=== PATIENT | male | born 2000 | race Caucasian/White ===

== ENCOUNTER 2019-07-13 15:40 | Observation (INO) | payer BC, SELFPAY ==
--- NOTE | ~2019-07-13 | CT_ITS ---
EXAMINATION: CT abdomen pelvis w con DATE: 07/13/2019 17:21 INDICATION: Abdominal pain TECHNIQUE: Computed tomography (CT) of the abdomen and pelvis was performed with 100 mL Omnipaque-350 intravenous contrast. Automated exposure control and iterative reconstruction technique were employe d. The dose-length product was 408.33 mGy-cm. COMPARISON: None FINDINGS: Lung bases are clear. Heart size is normal. No pericardial or pleural effusion. Liver, gallbladder, s pleen, pancreas, bilateral adrenal glands and kidneys are normal. Appendix is normal. Edematous appea ring wall thickening in the descending and sigmoid colon consistent with colitis. Small bowel is norm al with no obstruction. Small amount of likely reactive free fluid in the pelvis. No abscess or free intraperitoneal gas. Bladder is normal. No pathologically enlarged abdominal or pelvic lymphadenopath y. Bones are unremarkable. IMPRESSION: 1. Wall thickening in the descending and sigmoid colon consistent with colitis which could be infecti ous, inflammatory or less likely ischemic in etiology. Reviewed, dictated and finalized at location [facility] IMPRESSION: 1. Wall thickening in the descending and sigmoid colon consistent with colitis which could be infectious, inflammatory or less likely ischemic in etiology.
[2019-07-13 15:40] VITALS: BP 130/83; PULSE 70; RESP 18; TEMP 36.7; O2SAT 98
[2019-07-13 16:20] LABS: Basophils Absolute Auto 0.1 K/mm3 (0.0-0.1); Basophils Percent Auto 0.6 % (0.2-1.2); Eosinophils Absolute Auto 0.1 K/mm3 (0-0.3); Eosinophils Percent Auto 1.2 % (0-4.4); Hematocrit 49.2 % (42.0-52.0); Immature Granulocyte Absolute 0.03 K/mm3 (0.00-0.031); Immature Granulocyte Percent A 0.3 % (0-0.5); Lymphocytes Absolute Auto 3.24 K/mm3 (0.9-3.2); Lymphocytes Percent Auto 31.7 % (18.3-44.2); Mean Corpuscular HGB Conc 34.6 g/dl (32-36); Mean Corpuscular Hemoglobin 30.2 pg (26-34); Mean Corpuscular Volume 87.5 fl (80-100); Mean Platelet Volume 9.7 fl (7.4-10.4); Monocytes Absolute Auto 0.7 K/mm3 (0.1-0.6); Monocytes Percent Auto 7.2 % (2.6-8.5); Platelet Count Result 329 k/mm3 (150-375); Red Blood Count 5.62 M/mm3 (4.6-6.20); Red Cell Distribution Width 12.2 % (11.5-14.5); White Blood Count 10.2 K/mm3 (4.5-10.0)
--- NOTE | 2019-07-13 16:23 | ED.ABDPAIN ---
HPI - Abdominal Pain General Chief Complaint: Abdominal Pain Stated Complaint: Abdominal pain Time Seen by Provider: 07/13/19 15:45 Source: patient History of Present Illness HPI narrative: Pt is a 19 y/o male who presents to the ED with c/o generalized ABD pain that started last night. He reports associated hematochezia and diarrhea. He had 6 episodes of diarrhea with maroon colored blood and 2 episodes of just rectal bleeding. He has had ABD pain in the past but it always subsided on it's own and he was never worked up for it. Per mother, pt has had a h/o constipation in the past. He reports nausea, but denies vomiting or a fever. Per mother, pt's father has a H/o diverticulitis and IBS. MD elicited complaint: abdominal pain Onset (ago): day(s) (last night) Pain Consistency: constant Location: diffuse Associated symptoms: nausea, diarrhea and hematochezia Related Data Home Medications Medication Instructions Recorded Confirmed No Home Medications 07/13/19 07/13/19 Allergies Allergy/AdvReac Type Severity Reaction Status Date / Time No Known Allergies Allergy Verified 07/13/19 16:42 Review of Systems Review of Systems: All systems reviewed & are unremarkable except as noted in HPI and below Constitutional: Constitutional: Denies fever(s) Gastrointestinal: Gastrointestinal: Reports abdominal pain, Reports hematochezia, Reports diarrhea, Reports nausea and Denies vomiting PMFSH Past Medical History Medical History Dermatitis Tear, knee, medial collateral ligament Surgical History Surgical History History of hand surgery right hand Family History Family History (Updated 07/13/19 @ 11:08 by Debbie Toro [facility]) Other Lymphoma Social History Social History Smoking status: Never smoker Alcohol intake: current Exam Narrative: Exam Narrative: APPEARANCE: No acute distress, nontoxic, resting in bed HEENT: Normocephalic, atraumatic, OMM RESPIRATORY: No respiratory distress, clear to auscultation bilaterally with no rhonchi wheezing or rales CARDIOVASCULAR: RRR s murmur ABDOMINAL: Soft, nondistended, tender palpation right lower quadrant left lower quadrant, no tenderness right upper quadrant left upper quadrant, no rebound or guarding MUSCULOSKELETAl: Moves all extremities. No clubbing, cyanosis or edema. NEURO: Awake and alert. Following commands, speech normal, no focal deficits SKIN:: Warm, dry. Normal Color PSYCHIATRIC: Normal affect/mood Course Course Emergency Course: Discussed with Dr. Patel presentation work-up. At this time recommends patient started on Levaquin and Flagyl and will follow as inpatient Discussed with KEON Hyde presentation work-up. Agrees with admission at this time Discussed with patient and family results of workup and diagnosis. Discussed need for admission. Patient and family understand and agree to current treatment plan Vital Signs Vital signs: Vital Signs Temperature 98.0 F 07/13/19 15:40 Pulse Rate 70 07/13/19 15:40 Respiratory Rate 18 07/13/19 15:40 Blood Pressure 130/83 07/13/19 15:40 Pulse Oximetry 98 07/13/19 15:40 Temperature 98.2 F 07/13/19 16:40 Pulse Rate 74 07/13/19 16:40 Respiratory Rate 16 07/13/19 16:40 Blood Pressure 124/72 07/13/19 16:40 Pulse Oximetry 98 07/13/19 16:40 MDM - Abdominal Pain Lab Data Result diagrams: 07/13/19 16:08 07/13/19 16:08 Labs: Lab Results 07/13/19 07/13/19 07/13/19 Range/Units 16:08 16:08 16:08 WBC 10.2 H (4.5-10.0) K/mm3 RBC 5.62 (4.6-6.20) M/mm3 Hgb 17.0 (14.0-18.0) g/dL Hct 49.2 (42.0-52.0) % MCV 87.5 (80-100) fl MCH 30.2 (26-34) pg MCHC 34.6 (32-36) g/dl RDW 12.2 (11.5-14.5) % Plt Count 329 (150-375) k/mm3 MPV 9.7 (7.4-10.4) fl Immatu
[2019-07-13 16:29] LABS: Prothrombin Time 13.3 Seconds (11.1-14.7)
[2019-07-13 16:30] LABS: Partial Thromboplastin Time 27.6 SECONDS (22.3-36.8)
[2019-07-13 16:32] LABS: Alanine Aminotransferase 47 U/L (4-50); Albumin Level 4.9 g/dL (3.5-5.1); Alkaline Phosphatase 84 U/L (38-126); Aspartate Amino Transferase 29 U/L (17-59); Bilirubin,Total 1.4 mg/dL (0.2-1.3); Blood Urea Nitrogen 11 mg/dL (9-20); Calcium 9.6 mg/dL (8.4-10.2); Carbon Dioxide 28 mmol/L (22-30); Chloride 100 mmol/L (98-107); Estimated Glomerular Filt Rate > 60; Glucose 82 mg/dL (75-110); Potassium 3.6 mmol/L (3.4-5.0); Sodium 139 mmol/L (137-145)
[2019-07-13 16:40] VITALS: BP 124/72; PULSE 74; RESP 16; TEMP 36.8; O2SAT 98
[2019-07-13] MEDS: SODIUM CHLORIDE 0.9% IV 1,000 ML 999 ML IV CONT (16:43)
[2019-07-13 18:52] VITALS: BP 122/72; PULSE 84; RESP 16; O2SAT 98
[2019-07-13] MEDS: metroNIDAZOLE 500 MG/ISO 100ML 500 MG/100 ML BAG 100 MG IVPB (20:28)
--- NOTE | 2019-07-13 20:31 | ADMGEN ---
This patient, Nomi Newell, was admitted to Medical Room 249-. Patient/family oriented to hospital policies and general routines including ID bracelet, bed and alarms, visiting hours, pain management, procedures, bathroom and other care routines, personal items, smoking policy, room service/diet, and visiting hours. Valuables list has been completed. Information on how to activate the Rapid Response Team has been discussed. Patient/Family are encouraged to report perceived risks to care and to ask questions if they do not understand what they are told or what they should do.
[2019-07-13 21:19] VITALS: BP 113/66; PULSE 71; RESP 16; TEMP 37.7; O2SAT 99; BMI 23.6
--- NOTE | 2019-07-13 21:40 | PM.IMHP ---
H&P: HPI History of Present Illness Chief complaint: Abdominal pain, diarrhea, bloody stools. Narrative: Nomi Newell is a pleasant, previously healthy 19 year old male who presented to the emergency department earlier this afternoon via private vehicle from home for evaluation of abdominal pain, diarrhea, and bloody stools. Last evening, approximately 15 minutes after eating dinner which consisted of ramen noodles and chicken nuggets, he developed diffuse lower abdominal cramping followed by 5 to 6 episodes of diarrhea. The cramping continued throughout the night, at some point in time he began passing bright red blood per rectum, reportedly in large amounts. He had associated nausea but never had any vomiting. He was seen by his primary care provider today and was referred to the emergency department for further evaluation. He was found to have evidence of colitis on CT, and is being admitted in this setting. His sister ate the same dinner as Nomi did last evening, and she has not had similar symptoms. He frequently travels to [place] to see his girlfriend at college, but has not traveled overseas. He denies sick contacts with similar symptoms. He historically has had problems with constipation will occasionally strained to have a bowel movement. Very rarely will have small amounts of bright red blood on the toilet tissue after wiping. No personal or family history of inflammatory bowel disease. He has not had fever, chills, or sweats. No recent antibiotic use. He has no history of similar symptoms. Review of Systems Review of Systems: All systems reviewed & are unremarkable except as noted in HPI and below PMFSH Past Medical History Medical History (Updated 07/13/19 @ 21:46 by Mary Ellen Valentine PA-C) Dermatitis Tear, knee, medial collateral ligament Surgical History Surgical History History of hand surgery Pinning of right 4th metacarpal after fracture. Family History Family History Other Lymphoma Social History Social History (Updated 07/13/19 @ 21:44 by Mary Ellen Valentine PA-C) Social History: The patient lives in [place] with his father. 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 He is a lifelong nonsmoker and denies alcohol and drug abuse. Spiritual care concerns: No Agree to blood products: Yes Meds Home Medications and Allergies Home Medications Medication Instructions Recorded Confirmed Type No Home Medications 07/13/19 07/13/19 History Allergies Allergy/AdvReac Type Severity Reaction Status Date / Time No Known Allergies Allergy Verified 07/13/19 16:42 Vital Signs Vital Signs - 24 hr 07/13/19 15:40 07/13/19 16:40 07/13/19 18:52 Temperature 98.0 F 98.2 F Pulse Rate 70 74 84 Respiratory Rate 18 16 16 Blood Pressure 130/83 124/72 122/72 Pulse Oximetry 98 98 98 07/13/19 21:19 Temperature 99.8 F H Pulse Rate 71 Respiratory Rate 16 Blood Pressure 113/66 Pulse Oximetry 99 Exam Narrative: Exam Narrative: General: A well-developed, well-nourished male sitting up in bed in no acute distress. He is nontoxic in appearance. HEENT: Normocephalic, atraumatic. PERRL, EOMI. Sclerae anicteric. Oral mucosa moist. Oropharynx clear. Neck: Supple. Respiratory: Lungs are clear to auscultation bilaterally. Cardiovascular: Regular rate and rhythm with S1-S2. Gastrointestinal: Abdomen is soft and nondistended with positive bowel sounds. He is tender to palpation diffusely throughout the lower abdomen. No voluntary guarding or rebound tenderness. Rectal exam deferred. Skin: Warm and dry. No rash or lesions on limited exam. Extremities: No cyanosis, clubbing, or edema. Radial and pedal pulses intact. Neurological: Alert. Cranial nerves 2-12 are grossly intact. No gross focal deficits to
[2019-07-13 21:42] LABS: Hematocrit 42.2 % (42.0-52.0); Hemoglobin 14.8 g/dL (14.0-18.0)
[2019-07-13] MEDS: LACTATED RINGERS 1,000 ML 125 ML IV CONT (22:21)
[2019-07-14] MEDS: metroNIDAZOLE 500 MG/ISO 100ML 500 MG/100 ML BAG 100 MG IVPB ×2 (05:08→12:26)
[2019-07-14 06:47] LABS: Basophils Absolute Auto 0.1 K/mm3 (0.0-0.1); Basophils Percent Auto 0.8 % (0.2-1.2); Eosinophils Absolute Auto 0.2 K/mm3 (0-0.3); Eosinophils Percent Auto 2.2 % (0-4.4); Hemoglobin 14.3 g/dL (14.0-18.0); Immature Granulocyte Absolute 0.03 K/mm3 (0.00-0.031); Immature Granulocyte Percent A 0.3 % (0-0.5); Lymphocytes Absolute Auto 3.53 K/mm3 (0.9-3.2); Lymphocytes Percent Auto 40.4 % (18.3-44.2); Mean Corpuscular Hemoglobin 30.3 pg (26-34); Monocytes Absolute Auto 0.8 K/mm3 (0.1-0.6); Neutrophils Absolute Auto 4.1 K/mm3 (1.3-6.7); Neutrophils Percent Auto 47.3 % (45.5-73.1); Platelet Count Result 270 k/mm3 (150-375); Red Blood Count 4.72 M/mm3 (4.6-6.20); Red Cell Distribution Width 11.9 % (11.5-14.5); White Blood Count 8.7 K/mm3 (4.5-10.0)
[2019-07-14 06:51] LABS: Blood Urea Nitrogen 10 mg/dL (9-20); Calcium 8.8 mg/dL (8.4-10.2); Carbon Dioxide 26 mmol/L (22-30); Chloride 102 mmol/L (98-107); Estimated CRCL calculation 148 ml/min; Estimated Glomerular Filt Rate > 60; Glucose 73 mg/dL (75-110); Sodium 139 mmol/L (137-145)
[2019-07-14] MEDS: LACTATED RINGERS 1,000 ML 125 ML IV CONT (07:09)
--- NOTE | 2019-07-14 08:27 | WPDGICN ---
Assessment and Plan Additional Plan This is a 19-year-old white male patient I am asked to see at the request of the emergency room. Patient reports being in general good health till when he began to have diarrhea. On Tuesday this became bloody diarrhea. This prompted him to present to the emergency room for further evaluation. In the emergency room he was noted to have a CT scan consistent with infectious colitis. His hemoglobin was stable in fact was hemoconcentration was identified. Patient denies any previous episodes of GI blood loss. He did notice mild lower abdominal discomfort that is improved today. Patient denies any fever. He denies any recent travel. He is eating no unusual foods. No one else in the family is ill. There are no sick pets reported. Past medical history is significant for hand pending after a fracture. Family history reveals no colon or intestinal diseases. 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 Current medications at home are none. He has no medical allergies. Physical exam reveals him to be alert. Vital signs stable. HEENT exam unremarkable. Lungs are clear to auscultation and percussion. Heart is without murmur or extra sounds. Abdominal exam bowel sounds are present soft nontender with no hepatosplenomegaly. Digital external rectal exam deferred at this time. CBC reveals WBC 10.2. Hemoglobin [address] scan reveals wall thickening in the descending and sigmoid colon consistent with colitis. Impression 1. Infectious colitis. 2. Bloody diarrhea. This appears to be most consistent with infectious colitis. CT scan appears to confirm this finding. Inflammatory bowel disease appears less likely . Patient has improved clinically overnight with rehydration. Plan is for broad-spectrum antibiotics to be changed to oral medications. Advanced to a regular diet. And discharge. Outpatient colonoscopy may be prudent and can be performed electively through my office. GI Consult Note Consult date/time: 07/14/19 08:27 HPI: Nomi Newell is a 19 year old male [facility] Past Medical History Medical History (Updated 07/13/19 @ 21:46 by Mary Ellen Valentine PA-C) Dermatitis Tear, knee, medial collateral ligament Surgical History Surgical History History of hand surgery Pinning of right 4th metacarpal after fracture. Family History Family History Other Lymphoma Social History Social History (Updated 07/13/19 @ 21:44 by Mary Ellen Valentine PA-C) Social History: The patient lives in [place] with his father. 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 He is a lifelong nonsmoker and denies alcohol and drug abuse. Spiritual care concerns: No Agree to blood products: Yes Meds Home Medications and Allergies Home Medications Medication Instructions Recorded Confirmed Type No Home Medications 07/13/19 07/13/19 History Allergies Allergy/AdvReac Type Severity Reaction Status Date / Time No Known Allergies Allergy Verified 07/13/19 16:42 Vital Signs Vital Signs - 24 hr 07/13/19 15:40 07/13/19 16:40 07/13/19 18:52 Temperature 36.7 C 36.8 C Pulse Rate 70 74 84 Respiratory Rate 18 16 16 Blood Pressure 130/83 124/72 122/72 Pulse Oximetry 98 98 98 07/13/19 21:19 Temperature 37.7 C H Pulse Rate 71 Respiratory Rate 16 Blood Pressure 113/66 Pulse Oximetry 99 Results Labs CBC & Chem 7: 07/14/19 05:20 07/14/19 05:20 Labs: Short CBC 07/13/19 07/13/19 07/14/19 Range/Units 16:08 21:30 05:20 WBC 10.2 H 8.7 (4.5-10.0) K/mm3 Hgb 17.0 14.8 14.3 (14.0-18.0) g/dL Hct 49.2 42.2 42.0 (42.0-52.0) % Plt Count 329 270 (150-375) k/mm3 BMP 07/13/19 07/14/19 16:08 05:20 Sodium 139 139 Potassium
--- NOTE | 2019-07-14 12:35 | PM.DS ---
DS: Diagnosis Admitting Diagnosis Admitting Diagnosis: Noninfective gastroenteritis and colitis, unspecified Discharge Diagnosis (1) Colitis: Code(s): K52.9 - Noninfective gastroenteritis and colitis, unspecified Status: Acute Assessment and Plan: ------Presumably infectious in etiology. GI recommended abx provided below. Plan for outpatient colonoscopy. Pt without pain and WBC normal. (2) Rectal bleeding: Code(s): K62.5 - Hemorrhage of anus and rectum Status: Acute Assessment and Plan: -----Resolved. likley d/t colitis. Hgb stable DS: Summary Hospital Course Reason for hospitalization: Rectal bleeding and colitis Hospital Course: Patient is a 19-year-old male who presented emergency room for bright red blood per rectum and abdominal pain. Vitals in the ER were stable. White blood cell count initially 10.2, hemoglobin 17.0, hematocrit 49.2, platelets 329. CT of the abdomen pelvis showed wall thickening in the descending and sigmoid colon consistent with colitis which could be infectious, inflammatory, or ischemic. Ischemia seem less likely as the patient did not have any continued pain or hypotension. Infection seemed suspicious so he was started on Levaquin and Flagyl. The day of discharge the patient was able to take oral feedings and not in any pain. The bleeding had resolved. He was educated about the worrisome signs and symptoms come back to emergency room for was discharged stable condition. Patient educated not to drink alcohol these medications. Status at Discharge Functional status at discharge: independent ambulation Overall status at discharge: patient is back to baseline Time Spent with Patient Time attestation: Total time spent providing and/or coordinating discharge services: 32 minutes Exam Narrative: Exam Narrative: vitals: Temperature 99.8?, blood pressure 113/66, pulse 71, respiratory rate 16, 99 on room air General: Well-developed well-nourished patient resting comfortably in bed in no acute distress Neuro: Alert and oriented x4 HEENT: Normocephalic, neck supple CV: Regular rate and rhythm Resp: CTA Abd: Soft, non-distended. Some pain in the left lower quadrant on palpation. Positive bowel sounds. Extremities: no erythema or swelling of the lower extremities DS: Data Data Completed and Pending Labs on day of discharge: Labs from last 24 hours 07/14/19 07/14/19 07/13/19 05:20 05:20 21:30 WBC 8.7 RBC 4.72 Hgb 14.3 14.8 Hct 42.0 42.2 MCV 89.0 MCH 30.3 MCHC 34.0 RDW 11.9 Plt Count 270 MPV 10.0 Immature Gran % (Auto) 0.3 Neut % (Auto) 47.3 Lymph % (Auto) 40.4 Graham % (Auto) 9.0 H Eos % (Auto) 2.2 Baso % (Auto) 0.8 Lymph # (Auto) 3.53 H Graham # (Auto) 0.8 H Eos # (Auto) 0.2 Baso # (Auto) 0.1 Abs Immat Gran (auto) 0.03 Absolute Neuts (auto) 4.1 Absolute Nucleated RBC 0.0 Nucleated RBC % 0.0 PT INR APTT Sodium 139 Potassium 4.0 Chloride 102 Carbon Dioxide 26 BUN 10 Creatinine 0.80 Estim Creat Clear Calc 148 Estimated GFR > 60 Glucose 73 L Calcium 8.8 Total Bilirubin AST ALT Alkaline Phosphatase Total Protein Albumin 07/13/19 07/13/19 07/13/19 16:08 16:08 16:08 WBC 10.2 H RBC 5.62 Hgb 17.0 Hct 49.2 MCV 87.5 MCH 30.2 MCHC 34.6 RDW 12.2 Plt Count 329 MPV 9.7 Immature Gran % (Auto) 0.3 Neut % (Auto) 59.0 Lymph % (Auto) 31.7 Graham % (Auto) 7.2 Eos % (Auto) 1.2 Baso % (Auto) 0.6 Lymph # (Auto) 3.24 H Graham # (Auto) 0.7 H Eos # (Auto) 0.1 Baso # (Auto) 0.1 Abs Immat Gran (auto) 0.03 Absolute Neuts (auto) 6.0 Absolute Nucleated RBC 0.0 Nucleated RBC % 0.0 PT 13.3 INR 1.0 APTT 27.6 Sodium 139 Potassium 3.6 Chloride 100 Carbon Dioxide 28 BUN 11 Creatinine 0.80 Estim Creat Clear Calc
== END 2019-07-14 13:40 | disposition home or self-care (01) ==
LOC: ANHED 18:14 → ANH2MED 18:47
PROVIDERS: Admitting Provider Internal Medicine; Emergency Provider Emergency Medicine; PCP Internal Medicine; Visit Provider Family Medicine
DX: K52.9 Noninfective gastroenteritis and colitis, unspecified (principal); K62.5 Hemorrhage of anus and rectum; Z83.79 Family history of other diseases of the digestive system
CPT/HCPCS: 36415; 74177; 80048; 80053; 85014; 85018; 85025; 85610; 85730; 96361; 96365; 96375; 96376; 99285; G0378; J1956; J7030; J7120; Q9967

== ENCOUNTER 2019-07-25 01:41 | Day surgery (SDC) | payer BC, SELFPAY ==
[2019-07-19 14:58] VITALS: BMI 23.5
[2019-07-25 07:51] VITALS: BP 112/69; PULSE 57; RESP 18; TEMP 36.9; O2SAT 99; BMI 23.8
--- NOTE | 2019-07-25 07:54 | WPDANESEPPF ---
Anes - Initial Pre Proc Eval Procedure: Operation Date: 07/25/19 08:30 Proposed Procedures p Colonoscopy - Aron Patel MD Date/Time: 07/25/19 07:54 Surgeon: Aron Patel MD Pre Op Diagnosis: colitis Patient Data Age: 19 Gender: M Height: 6 ft 2 in Weight: 84.1 kg Last Vital Signs Temp 98.5 F 07/25/19 07:51 Pulse 57 L 07/25/19 07:51 Resp 18 07/25/19 07:51 BP 112/69 07/25/19 07:51 Pulse Ox 99 07/25/19 07:51 Allergies Allergy/AdvReac Type Severity Reaction Status Date / Time No Known Allergies Allergy Verified 07/25/19 07:50 Home Medications Medication Instructions Recorded Confirmed Type No Home Medications 07/19/19 07/25/19 History Patient hx anesthesia problems: none Family hx anesthesia problems: none [facility] Past Medical History Medical History (Updated 07/25/19 @ 07:47 by Bakari Muro MD) Depression Dermatitis Tear, knee, medial collateral ligament Surgical History Surgical History History of hand surgery Pinning of right 4th metacarpal after fracture. Social History Social History (Updated 07/13/19 @ 21:44 by Mary Ellen Valentine PA-C) Social History: The patient lives in [place] with his father. 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 He is a lifelong nonsmoker and denies alcohol and drug abuse. Spiritual care concerns: No Agree to blood products: Yes Anes - Eval Final PreProcedure Day of Procedure 07/25/19 07:54 Patient weight: normal Heart: regular rate and rhythm Lungs: clear to auscultation Airway: Mallampati scale class 1 Neurological: alert and oriented Last oral intake: >/= 8 hours ASA classification: II Emergent: no Anesthetic plan: proceed Anesthesia type and monitoring: general GIVS and standard monitoring Informed Consent: The patient's anesthetic plan and its attendant risks and benefits were discussed with the patient/family/POA. Questions were solicited and answers provided to the satisfaction of the patient/family/POA.
[2019-07-25] MEDS: LACTATED RINGERS 1,000 ML 150 ML IV CONT (08:05)
--- NOTE | 2019-07-25 08:33 | WPDGICN ---
Assessment and Plan Additional Plan This is a 19-year-old white male patient seen in evaluation after recent hospital stay. Patient admitted the hospital July 13 with colitis. Patient had bloody diarrhea at that time. CT scan suggested colitis. Patient was treated with broad-spectrum antibiotic coverage and has subsequently improved. He states the diarrhea has stopped. The bleeding has stopped he no longer has abdominal pain. He is somewhat careful with his oral intake. Stool cultures were negative. Patient presents today for colonoscopy to exclude inflammatory bowel disease. Current we on no medications. Family history is noncontributory. He has no known drug allergies. Physical exam reveals him to be alert. Vital signs stable. HEENT exam unremarkable. Lungs are clear to auscultation and percussion. Heart is without murmur or extra sounds. Abdominal exam bowel sounds are present soft nontender with no organomegaly. Digital external rectal exam is normal per Impression 1. Colitis now resolved. [place] to most likely be infectious. Inflammatory bowel disease cannot be excluded for this reason colonoscopy will be performed. Recent bloody diarrhea and abnormal CT scan are noted. Plan is for colonoscopy at this time. High-fiber diet is advised. In return to normal activity encouraged. GI Consult Note Consult date/time: 07/25/19 08:33 HPI: Nomi Newell is a 19 year old male [facility] Past Medical History Medical History (Updated 07/25/19 @ 07:47 by Bakari Muro MD) Depression Dermatitis Tear, knee, medial collateral ligament Surgical History Surgical History History of hand surgery Pinning of right 4th metacarpal after fracture. Social History Social History (Updated 07/13/19 @ 21:44 by Mary Ellen Valentine PA-C) Social History: The patient lives in [place] with his father. 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 He is a lifelong nonsmoker and denies alcohol and drug abuse. Spiritual care concerns: No Agree to blood products: Yes Meds Home Medications and Allergies Home Medications Medication Instructions Recorded Confirmed Type No Home Medications 07/19/19 07/25/19 History Allergies Allergy/AdvReac Type Severity Reaction Status Date / Time No Known Allergies Allergy Verified 07/25/19 07:50 Vital Signs Vital Signs - 24 hr 07/25/19 07:51 Temperature 36.9 C Pulse Rate 57 L Respiratory Rate 18 Blood Pressure 112/69 Pulse Oximetry 99
[2019-07-25] MEDS: SIMETHICONE ORAL SUSPENSION 20 MG/0.3 ML 30 ML BOTTLE 0.6 ML IRRIGATION (08:49)
[2019-07-25 08:58] VITALS: BP 90/55; PULSE 69; RESP 18; O2SAT 100
[2019-07-25 09:08] VITALS: BP 91/52; PULSE 65; RESP 20; O2SAT 98
[2019-07-25 09:18] VITALS: BP 97/53; PULSE 58; RESP 18; O2SAT 99
== END 2019-07-25 09:38 | disposition home or self-care (01) ==
PROVIDERS: PCP Internal Medicine; Visit Provider Internal Medicine Gastroenterology
PROC: 0DJD8ZZ Inspection of Lower Intestinal Tract, Via Natural or Artificial Opening Endoscopic (ICD-10-PCS; CPT 45378; principal; 2019-07-25 08:30)
DX: Z09 Encounter for follow-up examination after completed treatment for conditions other than malignant neoplasm (principal); K64.8 Other hemorrhoids; Z87.19 Personal history of other diseases of the digestive system
CPT/HCPCS: 45378; J2704; J7120